=== PATIENT | male | born 1955 | race Hispanic/Latino ===

== ENCOUNTER 2021-05-19 16:14 | Emergency (ER) | payer OTHER ==
--- NOTE | 2021-05-19 17:27 | RAD REPORT ---
EXAM DESCRIPTION: RAD - Foot Left 2 View - 05/19/2021 5:16 pm CLINICAL HISTORY: PAIN COMPARISON: No comparisons FINDINGS: Sewing needle in the foot at the level of the fourth metatarsal and proximal phalanx. This is presumably in the soft tissues. Peripheral vascular calcifications. No fractures identified IMPRESSION: Metallic foreign body within the plantar aspect of the foot at the level of the fourth p roximal phalanx and metatarsal.
[2021-05-19] MEDS ORDERED: HYDROCODONE/APAP 5/325 MG TAB ONE (21:34)
[2021-05-19] MEDS ORDERED: TETANUS & DIPHTHERIA TOX,ADULT 0.5 ML VIAL ONE (21:34)
[2021-05-19] MEDS ORDERED: IBUPROFEN 400 MG TAB ONE (21:35)
[2021-05-19] MEDS ORDERED: LIDOCAINE 1% W/EPI 1:100,000 MDV 50 ML VIAL ONE (21:35)
--- NOTE | 2021-05-19 23:07 | EDPHYS ---
Physician Documentation [facility] Name: Danny Patel Age: 66 yrs Sex: Male : 1955 Arrival Date: 05/19/2021 Time: 16:16 Bed 18 Private MD: Keena Guh ED Physician Johnson Negro HPI: 05/19 20:30 This 66 yrs old Male presents to ER via Wheelchair with complaints of Foot cp Pain. 20:30 The patient presents with an injury, a puncture wound, from a needle. The complaints cp affect the ball of left foot. Context: resulted from a penetrating injury, the patient can fully bear weight, the patient is able to ambulate, with moderate difficulty. Onset: The symptoms/episode began/occurred yesterday. Associated signs and symptoms: Pertinent negatives fever, numbness. Patient reports stepping on unknown object yesterday and concerned object may be embedded in foot. Historical: - Allergies: 16:38 Lyrica; jl7 - PMHx: 16:38 Diabetes - NIDDM; High Cholesterol; Hypertension; jl7 - Immunization history:: Client reports having NOT received the Covid vaccine. - Social history:: Smoking status: Patient denies any tobacco usage or history of. ROS: 20:35 Skin: Positive for puncture, of the ball of left foot. cp 20:35 Constitutional: Negative for body aches, chills, fever. cp 20:35 Cardiovascular: Negative for chest pain, palpitations. 20:35 Respiratory: Negative for cough, shortness of breath, wheezing. 20:35 All other systems are negative. Exam: 20:45 Constitutional: The patient appears in no acute distress, alert, awake, non-toxic, well cp developed, well nourished, uncomfortable. 20:45 Head/Face: Normocephalic, atraumatic. cp 20:45 Chest/axilla: Inspection: normal. 20:45 Cardiovascular: Rate: normal. 20:45 Respiratory: the patient does not display signs of respiratory distress, Respirations: normal, no use of accessory muscles, no retractions, labored breathing, is not present. 20:45 Abdomen/GI: Exam negative for discomfort, distension, guarding, Inspection: abdomen appears normal. 20:45 Skin: injury, that can be described as without bleeding, puncture(s), that are deep, of the ball of left foot. Vital Signs: 16:35 BP 141 / 70; Pulse 104; Resp 17; Temp 99; Pulse Ox 100% ; Weight 83.91 kg; Pain 10/; jl7 20:00 BP 151 / 75; Pulse 97; Resp 20; Temp 98.3; Pulse Ox 98% on R/A; cc4 23:35 BP 134 / 63; Pulse 94; Resp 20; Temp 97.9; Pulse Ox 98% on R/A; cc4 MDM: 20:24 Patient medically screened. 20:25 Test interpretation: by ED physician or midlevel provider: xrays of left foot show cp metallic needle embedded in foot. 23:00 Physician consultation: Aleksandr Grace MD was called at 23:00, was contacted at 23:00, regarding patient's condition, outpatient follow-up, in 2-3 days, and will see patient in office. 23:05 Data reviewed: vital signs, nurses notes, radiologic studies, plain films, I have cp discussed the patient's presentation/case with the attending Emergency Department Physician; and as a result, I will discharge patient. 23:05 Counseling: I had a detailed discussion with the patient and/or guardian regarding: the historical points, exam findings, and any diagnostic results supporting the discharge/admit diagnosis, radiology results, the need for outpatient follow up, for definitive care, a orthopedic surgeon. Response to treatment: the patient's symptoms have mildly improved after treatment. 05/19 16:40 Order name: XRAY Foot LEFT 2 View; Complete Time: 20:25 jl 05/19 20:25 Interpretation: Report reviewed. 05/19 20:59 Order name: Dressing - Wound; Complete Time: 23:05 cp 05/19 20:59 Order name: Gloves, Sterile; Complete Time: 23:05 cp 05/19 20:59 Order name: Setup Suture Tray; Complete Time: 23:05 cp 05/19 23:05 Order name: Crutches; Complete Time: 00:53 cp Administered Medications: 21:10 Drug: HYDROcodone-acetaminophen 5 mg-325 mg 1 tabs Route: PO; cc4 23:35 Follow up: Response: No adverse reaction; Pain is decreased cc4 21:10 Drug: Ibuprofen 800 mg Route: PO; cc4 23:35 Follow up: Response: No adverse reaction; Pain is decreased cc4 21:20 Drug: Tetanus-Diphtheria Toxoid Adult 0.5 ml {Advertising Copywriter: [employer]. Exp: cc4 12/16/2022. Lot #: [id number]. } Route: IM; Site: right deltoid; 23:35 Follow up: Response: No adverse reaction; Pain is decreased cc4 22:30 Drug: Bupivacaine (0.5 %) 10 ml Volume: 10 ml; Route: Infiltration; cc4 22:30 Drug: Lidocaine-Epinephrine -1%: (1:100,000) 10 ml Volume: 20 ml; Route: Infiltration; cc4 23:05 Drug: Cipro (ciprofloxacin) 500 mg Route: PO; sj1 23:35 Follow up: Response: No adverse reaction cc4 23:05 Drug: Doxycycline 100 mg Route: PO; sj1 23:35 Follow up: Response: No adverse reaction cc4 Disposition: 23:15 Chart complete. cp 05/20 04:45 Co-signature as Attending Physician, Johnson Negro MD Did not see or evaluate patient. ps1 Signature is for administrative purposes and not an endorsement of care provided. . Disposition Summary: 05/19/21 23:06 Discharge Ordered Location: Home cp Problem: new cp Symptoms: are unchanged cp Condition: Stable cp Diagnosis - Puncture wound with foreign body, left foot cp Followup: cp - With: Aleksandr Grace MD - When: 2 - 3 days - Reason: Wound Recheck Discharge Instructions: - Discharge Summary Sheet cp - Puncture Wound cp Forms: - Medication Reconciliation Form cp - Thank You Letter cp - Antibiotic Education cp - Prescription Opioid Use cp Prescriptions: - Cipro 500 mg Oral Tablet - take 1 tablet by ORAL route every 12 hours for 10 days; 20 tablet; Refills: 0, cp Product Selection Permitted - Doxycycline Hyclate 100 mg Oral Tablet - take 1 tablet by ORAL route every 12 hours; 20 tablet; Refills: 0, Product cp Selection Permitted - Tramadol 50 mg Oral Tablet - take 1 tablet by ORAL route every 8 hours as needed; 20 tablet; Refills: 0, cp Product Selection Permitted Signatures: Dispatcher [employer] EDNE Rory Caputo PA PA cp Ruth Pandey RN RN jl7 Johnson Negro MD MD ps1 Sugar Avalos RN RN cc4 José Miguel, Sade, RN RN sj1
--- NOTE | 2021-05-19 23:07 | ER ---
Nurse's Notes [facility] Name: Danny Patel Age: 66 yrs Sex: Male : 1955 Arrival Date: 05/19/2021 Time: 16:16 Bed 18 Private MD: Stanley Gu Diagnosis: Puncture wound with foreign body, left foot Presentation: 05/19 16:35 Chief complaint: Patient's son or daughter states: He stepped on something yesterday jl7 and it's still hurting, unable to locate what he stepped on and not sure if it's still in his foot or something. Reports pain to left foot. Coronavirus screen: At this time, the client does not indicate any symptoms associated with coronavirus-19. Ebola Screen: No symptoms or risks identified at this time. Initial Sepsis Screen: Does the patient meet any 2 criteria? No. Patient's initial sepsis screen is negative. Does the patient have a suspected source of infection? No. Patient's initial sepsis screen is negative. Risk Assessment: Do you want to hurt yourself or someone else? Patient reports no desire to harm self or others. Onset of symptoms was May 18, 2021. Care prior to arrival: None. 16:35 Method Of Arrival: Wheelchair jl7 16:35 Acuity: ARIEL 4 jl7 Triage Assessment: 16:38 General: Appears in no apparent distress. uncomfortable, Behavior is calm, cooperative, jl7 appropriate for age. Pain: Complains of pain in ball of left foot Pain currently is 10 out of 10 on a pain scale. Derm: Skin is pink, warm \T\ dry. Injury Description: Puncture sustained to ball of left foot is superficial, was sustained 1 day ago. Historical: - Allergies: 16:38 Lyrica; jl7 - PMHx: 16:38 Diabetes - NIDDM; High Cholesterol; Hypertension; jl7 - Immunization history:: Client reports having NOT received the Covid vaccine. - Social history:: Smoking status: Patient denies any tobacco usage or history of. Screenin:00 Abuse screen: Denies threats or abuse. Nutritional screening: No deficits noted. cc4 Tuberculosis screening: No symptoms or risk factors identified. Fall Risk None identified. Vital Signs: 16:35 BP 141 / 70; Pulse 104; Resp 17; Temp 99; Pulse Ox 100% ; Weight 83.91 kg; Pain 10/10; jl7 20:00 BP 151 / 75; Pulse 97; Resp 20; Temp 98.3; Pulse Ox 98% on R/A; cc4 23:35 BP 134 / 63; Pulse 94; Resp 20; Temp 97.9; Pulse Ox 98% on R/A; cc4 ED Course: 16:16 Patient arrived in ED. mr 16:17 Stanley Gu, DO is Private Physician. mr 16:38 Triage completed. jl7 16:38 Arm band placed on right wrist. jl7 16:39 Patient placed in waiting room, Patient notified of wait time. jl7 17:16 XRAY Foot LEFT 2 View In Process Unspecified. EDMS 20:00 Patient has correct armband on for positive identification. Bed in low position. Call cc4 light in reach. Side rails up X 1. 20:07 Sugar Avalos, MILENA is Primary Nurse. cc4 20:21 Rory Caputo PA is PHCP. cp 20:21 Johnson Negro MD is Attending Physician. cp 22:32 Assist provider with foreign body removal of Reports needle broke off in left foot cc4 while walking barefoot on carpet. Set up for procedure. Performed by Johnson Negro MD Dressed with Anitbiotic ointment, telfa, 4x4's, kelix dsg. 23:05 Aleksandr Grace MD is Referral Physician. cp 23:35 Patient did not have IV access during this emergency room visit. cc4 Administered Medications: 21:10 Drug: HYDROcodone-acetaminophen 5 mg-325 mg 1 tabs Route: PO; cc4 23:35 Follow up: Response: No adverse reaction; Pain is decreased cc4 21:10 Drug: Ibuprofen 800 mg Route: PO; cc4 23:35 Follow up: Response: No adverse reaction; Pain is decreased cc4 21:20 Drug: Tetanus-Diphtheria Toxoid Adult 0.5 ml {Lifestyle Consultant: [employer]. Exp: cc4 12/16/2022. Lot #: [id number]. } Route: IM; Site: right deltoid; 23:35 Follow up: Response: No adverse reaction; Pain is decreased cc4 22:30 Drug: Bupivacaine (0.5 %) 10 ml Volume: 10 ml; Route: Infiltration; cc4 22:30 Drug: Lidocaine-Epinephrine -1%: (1:100,000) 10 ml Volume: 20 ml; Route: Infiltration; cc4 23:05 Drug: Cipro (ciprofloxacin) 500 mg Route: PO; sj1 23:35 Follow up: Response: No adverse reaction cc4 23:05 Drug: Doxycycline 100 mg Route: PO; sj1 23:35 Follow up: Response: No adverse reaction cc4 Outcome: 23:06 Discharge ordered by MD. bernice 23:35 Discharged to home via wheelchair. cc4 23:35 Condition: stable 23:35 Discharge instructions given to patient, Instructed on discharge instructions, follow up and referral plans. medication usage, Demonstrated understanding of instructions, follow-up care, medications, Prescriptions given X 3. 05/20 00:57 Patient left the ED. cc4 Signatures: Dispatcher [employer] JAILENE SchwartzMercedes Corey, PA PA cp Leal, Jahala RN RN ruth7 Sugar Avalos RN RN cc4 Kelsi Valdez RN RN sj1
[2021-05-19] MEDS ORDERED: CIPROFLOXACIN HCL 500 MG TAB ONE ×2 (23:19→23:20)
[2021-05-19] MEDS ORDERED: DOXYCYCLINE 100 MG CAP PO ONE ×2 (23:20→23:21)
[2021-05-20 01:06] VITALS: O2SAT 98
[2021-05-20 01:07] VITALS: BP 134/63; TEMP 97.9
== END 2021-05-20 00:57 | disposition home or self-care (01) ==
LOC: ER 16:14
DX: S91.332A Puncture wound without foreign body, left foot, initial encounter (principal); I10 Essential (primary) hypertension; Z23 Encounter for immunization; Z88.8 Allergy status to other drugs, medicaments and biological substances
CPT/HCPCS: 90471; 90714; 99284